=== PATIENT | female | born 1990 | race Two or more races ===

== ENCOUNTER 2019-08-30 06:26 | Day surgery (SDC) | payer OTHER, SELFPAY ==
[~2019-08-30] VITALS: Ht 157.5 cm; Wt 89.3 kg
[2019-08-30 06:58] VITALS: BP 109/66
[2019-08-30 13:46] VITALS: BP 114/72
== END 2019-08-30 13:30 | disposition home or self-care (01) ==
LOC: DS 06:26 → OR 09:00 → DS 09:00
PROVIDERS: ATTEND Obstetrics & Gynecology
DX: Z30.2 Encounter for sterilization (principal); E66.9 Obesity, unspecified; Z68.39 Body mass index [BMI] 39.0-39.9, adult; Z11.59 Encounter for screening for other viral diseases
CPT/HCPCS: J0330; J0690; J1170; J2175; J2250; J2405; J2704; J2710; J3010; J3490; U0003-CS